=== PATIENT | female | born 1950 | race Two or more races ===

== ENCOUNTER 2022-10-30 16:40 | Inpatient (IN) | payer OTHER ==
[~2022-10-30] VITALS: Ht 167.6 cm; Wt 126.6 kg
== END 2022-11-03 14:42 | disposition home or self-care (01) | DRG 918 ==
LOC: ER 16:40 → MEDJ 10-31 11:13
PROVIDERS: ADMIT Internal Medicine; ATTEND Internal Medicine
PROC: 3E0F7GC Introduction of Other Therapeutic Substance into Respiratory Tract, Via Natural or Artificial Opening (ICD-10-PCS; 2022-10-30)
PROC: BB24ZZZ Computerized Tomography (CT Scan) of Bilateral Lungs (ICD-10-PCS; principal; 2022-10-31)
PROC: 4A12X4Z Monitoring of Cardiac Electrical Activity, External Approach (ICD-10-PCS; 2022-10-31)
DX: T59.891A Toxic effect of other specified gases, fumes and vapors, accidental (unintentional), initial encounter (principal); J90 Pleural effusion, not elsewhere classified; Z68.42 Body mass index [BMI] 45.0-49.9, adult; J68.3 Other acute and subacute respiratory conditions due to chemicals, gases, fumes and vapors; D72.828 Other elevated white blood cell count; K21.9 Gastro-esophageal reflux disease without esophagitis; E66.01 Morbid (severe) obesity due to excess calories; I10 Essential (primary) hypertension; E11.9 Type 2 diabetes mellitus without complications; Z79.4 Long term (current) use of insulin; Y92.488 Other paved roadways as the place of occurrence of the external cause